=== PATIENT | male | born 1940 | race Caucasian/White ===

== ENCOUNTER 2023-03-22 13:13 | Observation (INO) | payer MEDICARE, OTHER ==
[2023-03-22] MEDS ORDERED: Acetaminophen 325 MG Tab PO PRN (22:46)
[2023-03-22] MEDS ORDERED: Ondansetron 4 MG Tab.DIS PO PRN (22:46)
[2023-03-22 23:25] LABS: BASOPHILS ABSOLUTE AUTO 0.05 10^3/uL (0.00-0.10); BASOPHILS PERCENT AUTO 0.6 % (0.0-1.0); EOSINOPHILS ABSOLUTE AUTO 0.21 10^3/uL (0.10-0.30); EOSINOPHILS PERCENT AUTO 2.6 % (1.0-3.0); HEMATOCRIT 28.4 % (40.0-52.0); HEMOGLOBIN 9.4 g/dL (13.0-17.0); IMMATURE GRAN ABSOLUTE AUTO 0.04 10^3/uL (0.00-0.50); IMMATURE GRAN PERCENT AUTO 0.5 % (0.0-5.0); LYMPHOCYTES ABSOLUTE AUTO 1.29 10^3/uL (1.00-4.00); LYMPHOCYTES PERCENT AUTO 16.1 % (20.0-40.0); MEAN CORPUSCULAR HEMOGLOBIN 29.7 pg (27.0-31.0); MEAN CORPUSCULAR HGB CONC 33.1 g/dL (32.0-36.0); MEAN CORPUSCULAR VOLUME 89.6 fL (82.0-92.0); MONOCYTES ABSOLUTE AUTO 0.51 10^3/uL (0.10-0.80); MONOCYTES PERCENT AUTO 6.4 % (2.0-8.0); NEUTROPHILS ABSOLUTE AUTO 5.91 10^3/uL (2.50-7.00); NEUTROPHILS PERCENT AUTO 73.8 % (50.0-70.0); PLATELET COUNT,PLT 108 10^3/uL (150-400); RED BLOOD CELL COUNT 3.17 10^6/uL (4.50-6.00); RED CELL DISTRIBUTION WIDTH 16.6 % (11.5-14.5); WHITE BLOOD CELL COUNT,WBC 8.01 10^3/uL (5.00-10.00)
[2023-03-22 23:46] LABS: ALBUMIN 3.21 g/dL (3.40-5.00); ANION GAP 16.2 mmol/L (5-15); BILIRUBIN TOTAL 0.2 mg/dL (0.2-1.0); CALCIUM 8.7 mg/dL (8.7-10.3); CREATININE 0.98 mg/dL (0.51-1.17); EST CRCL DRUG DOSING (CG) 52.3 mL/min; POTASSIUM,K 4.2 mmol/L (3.5-5.1); PROTEIN TOTAL,TP 6.5 g/dL (6.4-8.2)
[2023-03-22 23:48] LABS: PROTHROMBIN TIME 10.1 SEC (9.2-11.2)
[2023-03-23] MEDS ORDERED: 50% Dextrose in Water 50 ML Syringe IVPUSH PRN (00:43)
[2023-03-23] MEDS ORDERED: Glucagon,Human Recombinant 1 MG Vial IM PRN (00:43)
[2023-03-23] MEDS: Insulin Glargine,Hum.Rec.Anlog 100 UNIT/ML 3 ML Pen SUBCUT SCH ×2 (00:47→08:45)
[2023-03-23 07:10] LABS: BASOPHILS ABSOLUTE AUTO 0.06 10^3/uL (0.00-0.10); BASOPHILS PERCENT AUTO 0.8 % (0.0-1.0); EOSINOPHILS ABSOLUTE AUTO 0.25 10^3/uL (0.10-0.30); EOSINOPHILS PERCENT AUTO 3.5 % (1.0-3.0); HEMATOCRIT 27.8 % (40.0-52.0); HEMOGLOBIN 9.4 g/dL (13.0-17.0); IMMATURE GRAN ABSOLUTE AUTO 0.02 10^3/uL (0.00-0.50); IMMATURE GRAN PERCENT AUTO 0.3 % (0.0-5.0); LYMPHOCYTES ABSOLUTE AUTO 1.35 10^3/uL (1.00-4.00); LYMPHOCYTES PERCENT AUTO 18.8 % (20.0-40.0); MEAN CORPUSCULAR HGB CONC 33.8 g/dL (32.0-36.0); MEAN CORPUSCULAR VOLUME 88.8 fL (82.0-92.0); MEAN PLATELET VOLUME 10.2 fL (7.4-10.4); MONOCYTES ABSOLUTE AUTO 0.53 10^3/uL (0.10-0.80); MONOCYTES PERCENT AUTO 7.4 % (2.0-8.0); NEUTROPHILS ABSOLUTE AUTO 4.97 10^3/uL (2.50-7.00); NEUTROPHILS PERCENT AUTO 69.2 % (50.0-70.0); PLATELET COUNT,PLT 111 10^3/uL (150-400); RED BLOOD CELL COUNT 3.13 10^6/uL (4.50-6.00); RED CELL DISTRIBUTION WIDTH 16.6 % (11.5-14.5); WHITE BLOOD CELL COUNT,WBC 7.18 10^3/uL (5.00-10.00)
[2023-03-23 07:20] LABS: HEMOGLOBIN A1C 6.2 % (4.3-5.7)
[2023-03-23 07:26] LABS: ANION GAP 14.8 mmol/L (5-15); CALCIUM 8.8 mg/dL (8.7-10.3); CARBON DIOXIDE,CO2 21.4 mmol/L (21.0-32.0); CREATININE 0.96 mg/dL (0.51-1.17); EST CRCL DRUG DOSING (CG) 53.39 mL/min; POTASSIUM,K 4.2 mmol/L (3.5-5.1)
[2023-03-23] MEDS: Insulin Lispro 100 Unit/ML 3 ML KwikPen SUBCUT SCH ×2 (08:20→12:06)
[2023-03-23] MEDS ORDERED: levETIRAcetam 500 MG Tab PO SCH (09:00)
[2023-03-23] MEDS ORDERED: Finasteride 5 MG Tab PO SCH (09:00)
[2023-03-23] MEDS ORDERED: Lisinopril 20 MG Tab PO SCH (09:00)
[2023-03-23] MEDS ORDERED: Omeprazole 20 MG Cap.CR PO SCH (09:00)
[2023-03-23 13:17] VITALS: BP 125/44; PULSE 71
== END 2023-03-23 14:00 ==
LOC: KA.ED 13:13 → KA.MS 22:12
PROVIDERS: ADMIT Physician Assistant; ATTEND Family Medicine
DX: S06.5XAA Traumatic subdural hemorrhage with loss of consciousness status unknown, initial encounter (principal); S06.9X9A Unspecified intracranial injury with loss of consciousness of unspecified duration, initial encounter; I60.9 Nontraumatic subarachnoid hemorrhage, unspecified; I62.00 Nontraumatic subdural hemorrhage, unspecified; I10 Essential (primary) hypertension; I25.10 Atherosclerotic heart disease of native coronary artery without angina pectoris; E78.00 Pure hypercholesterolemia, unspecified; G47.30 Sleep apnea, unspecified; N40.0 Benign prostatic hyperplasia without lower urinary tract symptoms; E11.9 Type 2 diabetes mellitus without complications; E66.9 Obesity, unspecified; Z68.26 Body mass index [BMI] 26.0-26.9, adult; Z79.899 Other long term (current) drug therapy; Z79.4 Long term (current) use of insulin; Z87.891 Personal history of nicotine dependence; W18.30XA Fall on same level, unspecified, initial encounter
CPT/HCPCS: 36415; 70450; 80048; 80053; 82947; 83036; 85025; 85610; 99284; 99285; A9270-GY; G0378; J1815-GY; Q3014